=== PATIENT | female | born 1950 | race Caucasian/White ===

== ENCOUNTER → 2024-04-25 07:33 | Outpatient (REF) | payer MEDICARE, OTHER, SELFPAY | LOC: PAVMRI 07:33 | PROVIDERS: ATTENDING PHYSICIAN Ophthalmology; PRIMARYCARE PHYSICIAN Nurse Practitioner Family | DX: H54.7 Unspecified visual loss (principal); H47.099 Other disorders of optic nerve, not elsewhere classified, unspecified eye | CPT/HCPCS: 70543; A9575 ==

== ENCOUNTER → 2024-05-02 07:08 | Outpatient (REF) | payer MEDICARE, OTHER, SELFPAY | LOC: MRI 3T 07:08 | PROVIDERS: ATTENDING PHYSICIAN Physical Medicine & Rehabilitation; FAMILY PHYSICIAN Nurse Practitioner Family | DX: M24.569 Contracture, unspecified knee (principal) | CPT/HCPCS: 72148 ==

== ENCOUNTER 2024-10-12 17:25 | Emergency (ER) | payer MEDICARE, OTHER, SELFPAY ==
[2024-10-12 17:28] VITALS: BP 160/73
[2024-10-12 18:32] VITALS: BMI 26.1
[2024-10-12 18:58] LABS: % Eosinophils 5.6 % (0-6); % Immature Granulocytes 0.2 % (0-0.5); % Lymphocytes 19.3 % (20.5-51.1); % Monocytes 8.4 % (1.7-9.3); % Neutrophils 65.5 % (42.2-75.2); Absolute Basophils 0.1 10^3/uL (0-0.2); Absolute Eosinophils 0.4 10^3/uL (0-0.7); Absolute Lymphocytes 1.2 10^3/uL (1.2-3.4); Absolute Monocytes 0.5 10^3/uL (0.1-0.6); Absolute Neutrophils 4.1 10^3/uL (1.4-6.5); Hematocrit 36.3 % (37.0-47.0); Mean Corp Hgb Conc. 33.1 g/dL (33.0-37.0); Mean Corpuscular Hgb 27.3 pg (27.0-31.0); Mean Corpuscular Volume 82.5 fL (81.0-99.0); Mean Platelet Volume 10.5 fL (7.4-10.4); Nucleated Red Blood Cells % 0 %; Platelet Count 310 10^3/uL (130-400); Red Cell Dist. Width 14.5 % (11.5-14.5); White Blood Cell Count 6.2 10^3/uL (4.8-10.8)
[2024-10-12 19:00] VITALS: BP 151/51
[2024-10-12 19:17] LABS: ALT (SGPT) < 10 U/L (0-35); AST (SGOT) 16 U/L (14-36); Albumin 4.4 g/dl (3.5-5.0); Alkaline Phosphatase 101 U/L (38-126); Blood Urea Nitrogen 19 mg/dl (7-17); Calcium 9.4 mg/dl (8.4-10.2); Carbon Dioxide 30 mmol/L (22-30); Chloride 105 mmol/L (98-107); Estimated Creatinine Clearance 53 ml/min; Glucose 100 mg/dl (70-99); Potassium 4.6 mmol/L (3.5-5.1); Sodium 143 mmol/L (135-145); Total Bilirubin 1.1 mg/dl (0.2-1.3); Total Protein 7.4 g/dl (6.3-8.2); eGFR > 60.00
[2024-10-12 20:47] LABS: Urine Albumin 3+ (Neg - Trace); Urine Bilirubin Negative (Negative); Urine Character Cloudy (Clear); Urine Color Yellow; Urine Glucose Negative (Negative); Urine Ketone Negative (Negative); Urine Leukocyte 3+ (Negative); Urine Nitrite Positive (Negative); Urine Occult Blood 4+ (Negative); Urine Specific Gravity 1.015 (<1.030); Urine Urobilinogen Negative (Neg - 1+); Urine pH 6.5 (5.0-9.0)
[2024-10-12 20:52] LABS: Urine Bacteria Many (Negative); Urine Red Blood Cell 0-2 /HPF (0-2); Urine Squamous Cell 0-2 /LPF (Few); Urine White Cell 80-90 /HPF (0-5)
[2024-10-12 20:55] LABS: Amphetamines Negative (Negative); Barbiturates Negative (Negative); Benzodiazepines Negative (Negative); Buprenorphine Negative (Negative); Cocaine Negative (Negative); Marijuana Negative (Negative); Methadone Negative (Negative); Methamphetamines Negative (Negative); Opiates Negative (Negative); Phencyclidine Negative (Negative); Tricyclic Antidepressants Negative (Negative)
[2024-10-12 21:00] VITALS: BP 114/53
[2024-10-12] MEDS: LEVAQUIN 500 MG PO (21:15)
--- NOTE | 2024-10-12 21:32 | ED.GENMED ---
History of Present Illness
General
Chief Complaint: Airway Problem
Source: patient
Exam Limitations: none
Time Seen by Provider: 10/12/24 17:40
Nursing documentation reviewed up to this point in time: agreed with
History of Present Illness
History of Present Illness:
Patient to ED with complaint of drooping vs swelling to right eye. SHe noticed symptoms around 2AM No history of trauma. Denies dizziness, blurred viision. No fever/chills. Denies any facial numbnes/tingling. No weakness in extremities.
Brought to ED by son for eval
Past History
Past History
ED Past Medical History: Arrthythmia (afib/flutter), Cancer, CHF (w/ preserved EF), HTN, Hypercholesterolemia, NIDDM, Valvular disease (SEVERE MR, Tricuspid regurg, portal HTN), Hypothyroidism and Other (migraines, pericardial effusion,
cardiomyopathy, )
ED Past Surgical History: Orthopedic and Other
Patient has exhibited threatening behavior?: No
PSI?: No
Social History
Tobacco: Former smoker
Alcohol: Occasional
Drug: None
Personal:
Living: with family
Employment: Not employed
Family History
Family History: Other (Noncontributory)
Review of Systems
Review of Systems
Allergies reviewed?: Yes
All Other Systems: ROS reviewed and negative except as documented in HPI and ROS
Constitutional: Reports no symptoms
EENT: Reports no symptoms
Respiratory: Reports no symptoms
ABD/GI: Reports no symptoms
: Reports no symptoms
Musculoskeletal: Reports no symptoms
Skin: Reports no symptoms
Neurological: Reports other (drooping vs swelling to right orbit)
Psychiatric: Reports no symptoms
Phy Exam
General Physical Exam
General Presentation: well appearing and no apparent distress
General age: appears stated age
General Skin: warm and dry
General Habitus: normal
General Mental: alert
General Hydration: appears well hydrated
Eye Exam
Eye Exam: PERRL, EOMI, conjunctiva normal, globe normal and visual lopez normal
Eye Exam General: PERRL: bilateral and EOM intact: bilateral
Cardiovascular Exam
Cardiovascular Exam: regular rate/rhythm and no edema
Pulmonary Exam
Pulmonary Exam: lungs clear and no respiratory distress
Gastrointestinal Exam
Gastrointestinal Exam: non tender and soft
Neurological Exam
Neurological Exam: alert, oriented x3 and CN II-XII intact (no droop on exam. able to raise eyebrows equally. Able to squeeze shut lids and resist equally. mild swelling to lower orbit. No facial asymmetry)
NIH Stroke Score
Level of Consciousness: 0 - Alert
LOC questions: 0-Answers both correctly
LOC Commands: 0-Performs both correctly
Best Gaze: 0-Normal
Visual Lopez: 0=Normal, no visual loss
Facial palsy: 0=Normal, symmetrical
Motor - Right Arm: 0=No drift 10 seconds
Motor - Left Arm: 0=No drift 10 seconds
Motor - Right Le-None vs. gravity
Explanation of amputation/joint fusion: Baseline for this patient
Motor - Left Le-None vs. gravity
Explanation of amputation/joint fusion: baseline for this patient.
Limb Ataxia: 0-Absent
Sensation: 0-Normal
Best Language: 0-No aphasia
Dysarthria: 0-Normal
Extinction and Inattention: 0-No abnormality
Total Score:: 6
Musculoskeletal Exam
Musculoskeletal Exam: full ROM and neuro vasc intact
Skin Exam
Skin Exam: normal color, warm/dry and no rash
Psychiatric Exam
Psychiatric Exam: normal mood/affect
Course
Orders/Labs/Results
Orders:
Orders
10/12/24 17:40
CT Head W/o Iv Contrast Urgent
Comment:
Reason For Exam: headache, right eyelid droop
10/12/24 18:49
Complete Blood Count/With Diff Urgent
Comprehensive Metabolic Panel Urgent
10/12/24 20:35
Urinalysis Reflex To Culture Urgent
Date Specimen was Collected: 10/12/24
Time Specimen was Collected: 20:11
Urine Drug Abuse Screen Urgent
Date Specimen was Collected: 10/12/24
Time Specimen was Collected: 20:11
Urine Microscopic Reflex Cult Urgent
Urine Culture Urgent
AUTUMN Source: U
Specimen Description:
Date Specimen was Collected: 10/12/24
Time Specimen was Collected: 20:11
10/12/24 21:09
LevoFLOXacin [Levaquin] 500 mg PO NOW STA
Abnormal Lab Results
10/12/24 10/12/24
18:49 20:35
Hct 36.3 L %
(37.0-47.0)
MPV 10.5 H fL
(7.4-10.4)
Lymphocytes % 19.3 L %
(20.5-51.1)
BUN 19 H mg/dl
(7-17)
Glucose 100 H mg/dl
(70-99)
Ur Occult Blood Reflex 4+ A
(Negative)
Urine Nitrite (Reflex) Positive A
(Negative)
Leukocyte Esterase Rfl 3+ A
(Negative)
Urine WBC (Reflex) 80-90 A /HPF
(0-5)
Urine Bacteria (Reflex) Many A
(Negative)
Urine Albumin (Reflex) 3+ A
(Neg - Trace)
10/12/24 18:49
10/12/24 18:49
Vital Signs
Initial and Last Documented VS:
Initial Vital Signs
Temp Pulse Resp BP Pulse Ox
98.2 F 85 18 160/73 96
10/12/24 17:28 10/12/24 17:28 10/12/24 17:28 10/12/24 17:28 10/12/24 17:28
Last Documented Vital Signs
Temp Pulse Resp BP Pulse Ox
98.2 F 85 18 160/73 96
10/12/24 17:28 10/12/24 17:28 10/12/24 17:28 10/12/24 17:28 10/12/24 17:28
*Radiology
Radiology exam reviewed: radiology read reviewed
*Pulse Oximetry
Patient hypoxic: no
*Critical Care Note
Total Time (30-74mins, 75-104mins- exclusive of procedures): Not Applicable
Update Note
Update Note:
Patient to ED for eval of right orbit drooping vs swelling. States she noticed this at 2AM. Denies fever/chills, recent illness. No headache or dizziness. No n/v/d. Labs CT reviewed. No evidenc of CVA. Physical exam is not concerning for CVA. CT
confirming ethmoid sinusitis. UA concerning for UTI. Will place on Levaquin She is discharged home and will follow upw tih PCP. given instructions on s/s to return to ED and she is agreeable to plan..
ED Attending Note
-
Portions of this chart may have been created with voice recognition software.� Occasional wrong word or��sound alike� substitutions may have occurred due to the inherent limitations of voice recognition software.
Discharge Plan
Departure
Patient Disposition: Home (Routine Discharge)
Date of Disposition: 10/12/24
Time of Disposition: 21:10
Patient with high blood pressure during this ER visit?: No
Condition: Good
Covid-19: Not Applicable
Discharge Problem:
Sinusitis, UTI (urinary tract infection)
Instructions: Urinary tract infections in adults, Sinusitis in adults
Prescriptions:
New
levofloxacin 500 mg tablet
500 mg PO DAILY 7 Days Qty: 7 0RF
No Action
levothyroxine 150 mcg tablet
150 mcg PO DAILY
amlodipine 2.5 mg Tablet
5 mg PO DAILY Qty: 30 0RF
Probiotic 3 billion cell capsule
3,000 mmu cells PO DAILY Qty: 30 0RF
Referrals:
UNKNOWN - PT DOES,NOT KNOW [Family Provider] -
Activity Restrictions/Additional Instructions:
Follow up with your family doctor. Return to the emergency department immediately for any changes in/worsening of your symptoms
Interventions
Interventions:
*Risk Screen - Suicide Last Done: 10/12/24 17:28
*General Assessment Last Done: 10/12/24 17:28
*Neglect/Abuse Screening Last Done: 10/12/24 17:28
*ED- Fall Risk Assessment Last Done: 10/12/24 18:33
*ED COVID-19 Vaccine History Last Done: 10/12/24 18:33
ED- Pulmonary Assessment Last Done: 10/12/24 18:33
Discharge Date and Time
Print Language: YAKUT
== END 2024-10-12 22:09 | disposition home or self-care (01) ==
LOC: EMR 17:25
PROVIDERS: Nurse Practitioner; EMERGENCY PHYSICIAN Emergency Medicine
DX: N39.0 Urinary tract infection, site not specified (principal); J32.9 Chronic sinusitis, unspecified; E78.00 Pure hypercholesterolemia, unspecified; I11.0 Hypertensive heart disease with heart failure; I50.32 Chronic diastolic (congestive) heart failure; E03.9 Hypothyroidism, unspecified; E11.9 Type 2 diabetes mellitus without complications; I42.9 Cardiomyopathy, unspecified; I48.91 Unspecified atrial fibrillation; Z87.891 Personal history of nicotine dependence
CPT/HCPCS: 99284; 70450; 80053; 80306; 81003; 81015; 85025; 87086; 87088; 87186

== ENCOUNTER → 2024-11-18 14:41 | Outpatient (REF) | payer MEDICARE, OTHER, SELFPAY | LOC: RCS 14:41 | PROVIDERS: ATTENDING PHYSICIAN Internal Medicine Cardiovascular Disease | DX: I10 Essential (primary) hypertension (principal); I44.1 Atrioventricular block, second degree; R60.0 Localized edema | CPT/HCPCS: 93306 ==

== ENCOUNTER → 2025-01-07 07:26 | Outpatient (REF) | payer MEDICARE, OTHER, SELFPAY | LOC: MRI 07:26 | PROVIDERS: ATTENDING PHYSICIAN Psychiatry & Neurology Neurology | DX: M62.81 Muscle weakness (generalized) (principal); G95.9 Disease of spinal cord, unspecified | CPT/HCPCS: 70551; 72141 ==

== ENCOUNTER → 2025-02-18 10:02 | Outpatient (REF) | payer MEDICARE, OTHER, SELFPAY | LOC: RCS 10:02 | PROVIDERS: ATTENDING PHYSICIAN Psychiatry & Neurology Neurology | DX: G46.3 Brain stem stroke syndrome (principal); I49.3 Ventricular premature depolarization; I47.20 Ventricular tachycardia, unspecified | CPT/HCPCS: 93225; 93226 ==

== ENCOUNTER → 2025-02-21 07:06 | Outpatient (REF) | payer MEDICARE, OTHER, SELFPAY | LOC: RCS 07:06 | PROVIDERS: ATTENDING PHYSICIAN Psychiatry & Neurology Neurology | DX: G46.3 Brain stem stroke syndrome (principal) | CPT/HCPCS: 93306 ==

== ENCOUNTER → 2025-03-16 15:55 | Outpatient (REF) | payer MEDICARE, OTHER, SELFPAY | LOC: MRI 3T 15:55 | PROVIDERS: ATTENDING PHYSICIAN Psychiatry & Neurology Neurology | DX: G46.3 Brain stem stroke syndrome (principal); R42 Dizziness and giddiness | CPT/HCPCS: 70544; 70547 ==

== ENCOUNTER → 2025-04-23 08:41 | Outpatient (REF) | payer MEDICARE, OTHER, SELFPAY ==
[2025-04-23 10:01] LABS: Glycohemoglobin (HgbA1c) 5.2 % (4.0-5.9)
[2025-04-23 10:24] LABS: HDL Cholesterol 81 mg/dl; LDL Cholesterol, Calculated 57 mg/dl; Very Low Density Lipoprotein 17 mg/dl (0-30)
[2025-04-23 10:51] LABS: TSH 0.18 uIU/ml (0.47-4.68)
[2025-04-23 12:52] LABS: Folate 5.6 ng/ml (2.76-20); Vitamin B12 362 pg/ml (239-931)
[2025-04-25 21:50] LABS: 24 Hour Urine Total Volume Random mL; Urine Collection Length Random hr
[2025-04-26 03:41] LABS: ANA, IgG Reflex to HEp-2 None Detected (None Detected)
== END ==
LOC: REG 08:41
PROVIDERS: ATTENDING PHYSICIAN Psychiatry & Neurology Neurology
DX: G62.9 Polyneuropathy, unspecified (principal); E53.8 Deficiency of other specified B group vitamins; G46.3 Brain stem stroke syndrome; R53.83 Other fatigue; E11.9 Type 2 diabetes mellitus without complications
CPT/HCPCS: 36415; 80061; 82607; 82746; 82784; 83036; 83520; 83521; 84155; 84156; 84165; 84443; 86038; 86334; 86335